=== PATIENT | female | born 1985 | race African-American/Black ===

== ENCOUNTER 2017-06-01 23:40 | Inpatient (IN) | payer MEDICAID ==
[~2017-06-01] VITALS: Ht 165.1 cm; Wt 93.0 kg
[2017-06-01] MEDS ORDERED: OXYTOCIN 30 UNIT/500 ML PREMIX 500 ML IV PRN (23:45)
[2017-06-01] MEDS ORDERED: IBUPROFEN 600 MG TABLET. PO PRN (23:45)
[2017-06-01] MEDS ORDERED: TERBUTALINE 1 MG/ML VIAL. SQ PRN (23:45)
[2017-06-01] MEDS ORDERED: 0.9 % SODIUM CHLORIDE 10 ML DISP.SYRIN. IV PRN (23:45)
[2017-06-01] MEDS ORDERED: LIDOCAINE 1% PF 30 ML VIAL. INJ PRN (23:45)
[2017-06-02] MEDS ORDERED: PENICILLIN G K 5,000,000 UNIT in IV NORMAL SALINE 100ML 100 ML IV ONE ×2
[2017-06-02 00:26] LABS: BILIRUBIN,URINE NEGATIVE (NEG); GLUCOSE,URINE NEGATIVE (NEG); NITRITE,URINE NEGATIVE (NEG); PROTEIN,URINE >=300 mg/dL (NEG-TRACE); UROBILINOGEN,URINE 0.2 mg/dL (0.2 mg/dL)
[2017-06-02] MEDS: IV RINGERS,LACTATED 1000ML 1,000 ML IV SCH ×2 (00:28→01:12)
[2017-06-02] MEDS ORDERED: fentaNYL PF VIAL 100 MCG/2 ML VIAL IV PRN (00:30)
[2017-06-02] MEDS ORDERED: BUTORPHANOL 2 MG/ML VIAL. IV PRN (00:30)
[2017-06-02 00:32] LABS: BARBITURATES NEG (NEG); BENZODIAZEPINES NEG (NEG); CANNABINOIDS POS (NEG); COCAINE NEG (NEG); METHADONE NEG (NEG); OPIATES NEG (NEG); PHENCYCLIDINE NEG (NEG)
[2017-06-02 00:33] LABS: HEMATOCRIT 31.3 % (36.0-47.0); HEMOGLOBIN 10.7 g/dL (12.0-15.5); RED BLOOD COUNT 3.16 x10^6/uL (3.50-5.40); WHITE BLOOD COUNT 11.9 x10^3/uL (4.0-11.0)
[2017-06-02 00:37] LABS: BACTERIA,URINE FEW /HPF (0-FEW); SQUAMOUS EPITHELIAL CELL,UR MANY /LPF
[2017-06-02 00:45] VITALS: BP 147/88
[2017-06-02 00:48] LABS: ALBUMIN 2.2 g/dL (3.4-5.0); ALBUMIN/GLOBULIN RATIO 0.5 (1.0-1.7); CALCIUM 8.2 mg/dL (8.5-10.1); CREATININE 1.3 mg/dL (0.6-1.0); GFR 57.4; POTASSIUM 4.1 mmol/L (3.5-5.1); TOTAL BILIRUBIN 0.2 mg/dL (0.2-1.0); TOTAL PROTEIN 6.4 g/dL (6.4-8.2)
[2017-06-02] MEDS ORDERED: ROPIVacaine 0.2% IN 0.9%NACL PF 40 MG/20 ML DISP.SYRIN. ONE (01:19)
[2017-06-02] MEDS ORDERED: L&D EPIDURAL CASSETTE 100 ML PUMP.RESVR. EP ONE (01:19)
[2017-06-02] MEDS ORDERED: L&D EPIDURAL CASSETTE 100 ML EP ONE (01:19)
[2017-06-02] MEDS ORDERED: BUPIVACAINE MPF 0.25% 30 ML VIAL. ONE (01:32)
[2017-06-02] MEDS ORDERED: L&D EPIDURAL CASSETTE 100 ML EP PRN (02:00)
[2017-06-02] MEDS ORDERED: BUPIVACAINE MPF 0.25% 10 ML VIAL. EPI PRN (02:00)
[2017-06-02] MEDS ORDERED: ROPIVacaine 0.2% IN 0.9%NACL PF 40 MG/20 ML DISP.SYRIN. EPI PRN (02:00)
[2017-06-02] MEDS ORDERED: ePHEDrine PF IN SALINE 50 MG/5 ML DISP.SYRIN IV PRN (02:00)
[2017-06-02] MEDS ORDERED: IV RINGERS,LACTATED 500ML 500 ML IV PRN (02:00)
[2017-06-02] MEDS ORDERED: PHENYLEPHRINE in 0.9% NACL PF 1 MG/10 ML DISP.SYRIN. IV PRN (02:00)
[2017-06-02] MEDS ORDERED: PROCHLORPERAZINE 10 MG/2 ML VIAL. IV PRN (02:00)
[2017-06-02] MEDS ORDERED: ONDANSETRON PF 4 MG/2 ML VIAL. IV PRN (02:00)
[2017-06-02] MEDS ORDERED: NALOXONE 0.4 MG/ML VIAL. IV PRN (02:00)
[2017-06-02] MEDS ORDERED: fentaNYL PF VIAL 100 MCG/2 ML VIAL EPI PRN (02:00)
[2017-06-02] MEDS ORDERED: ATROPINE 0.5 MG/5 ML DISP.SYRIN. IV PRN (02:00)
[2017-06-02] MEDS ORDERED: diphenhydrAMINE 50 MG/ML VIAL IV PRN (02:00)
[2017-06-02] MEDS ORDERED: IV RINGERS,LACTATED 1000ML 1,000 ML IV SCH (02:00)
--- NOTE | 2017-06-02 02:05 | PDOC1 ---
OB - History Hx of Present Care: Good Care Ultrasounds: Normal mid trimester US Obstetrical Complications: None Medical Complications: None Past Family/Social History * Past Medical, Surgical, Family and Obstetric Histories reviewed from chart. Rubella: Immune RPR/VDRL: Negative GBS Status: Unknown HBsAG: Negative OB - Chief Complaint & HPI Date of Admission: Date of Admission: Jun 01, 2017 at 23:40 Chief Complaint/History : 7 Para: 4 EGA: 40 Reason for admission: active labor Admission Nurse Assessment Rev: Yes Problems: OB - Admission Exam Physical Exam Vitals: VS - Last 72 Hours, by Label Date Time Temp Pulse Resp B/P (MAP) Pulse Ox O2 Delivery O2 Flow Rate FiO2 06/02/17 00:45 98.7 75 20 147/88 (107) Room Air 98.7 06/02/17 00:41 18 HEENT: Normal Heart: Regular Rate Lungs: Clear Abdomen: Gravid, Non tender, Soft Extremities: Edema Reflexes: Normal Cervical Dilatation: 5cm Effacement: 75% Membranes: Intact Heart Rate: Normal Accelerations: Accelerations Present Decelerations: No decelerations Contractions on Admission: < 5 Minutes Apart Intensity: Firm Text A: 40 wks IUP Active Labor GBS unknown P: Admit for labor management. Start Pen G prophylaxis for GBS unknown status. SYEDA VALDERRAMA Jr, MD Jun 02, 2017 02:05
[2017-06-02] MEDS ORDERED: PENICILLIN G K 2,500,000 UNIT in IV NORMAL SALINE 50ML 50 ML IV SCH (04:00)
--- NOTE | 2017-06-02 07:03 | PDOC ---
VAGINAL DELIVERY DATE DATE: 06/02/17 TIME: 07:01 : 7 Para: 5 EGA: 40 VAGINAL DELIVERY: VTX VACCUM ASSISTED: No PLACENTA: Spontaneous 8/9 SEX: Female WEIGHT Weight [ 2660 gm] Nuchal Cord: No Amniotic Fluid: Thin Meconium PAIN: Epidural EPISIOTOMY: No EXTENSION: No EBL 300 ml COMPLICATIONS none CONDITION pt. stable Signs of Intrauterine Infectio: None Shoulder Dystocia: No Problems: SYEDA VALDERRAMA Jr, MD Jun 02, 2017 07:02
[2017-06-02] MEDS ORDERED: MMR per PROTOCOL. MC PRN (07:15)
[2017-06-02] MEDS ORDERED: ACETAMINOPHEN 325 MG TABLET. PO PRN (07:15)
[2017-06-02] MEDS ORDERED: OXYTOCIN 30 UNIT/500 ML PREMIX 500 ML IV PRN (07:15)
[2017-06-02] MEDS ORDERED: MAG HYDROX/ALUMINUM HYD/SIMETH 30 ML ORAL.SUSP PO PRN (07:15)
[2017-06-02] MEDS ORDERED: BENZOCAINE 20% TOPICAL AEROSOL SPRAY 57GM CAN. TP PRN (07:15)
[2017-06-02] MEDS ORDERED: ZOLPIDEM 5 MG TABLET. PO PRN (07:15)
[2017-06-02] MEDS ORDERED: SIMETHICONE 80 MG TAB.CHEW PO PRN (07:15)
[2017-06-02] MEDS ORDERED: 0.9 % SODIUM CHLORIDE 10 ML DISP.SYRIN. IV PRN (07:15)
[2017-06-02] MEDS ORDERED: diphenhydrAMINE HCL 25 MG CAPSULE PO PRN (07:15)
[2017-06-02] MEDS ORDERED: DOCUSATE SODIUM 100 MG CAPSULE. PO PRN (07:15)
[2017-06-02] MEDS ORDERED: oxyCODONE/APAP 5/325 1 TAB TABLET PO PRN (07:15)
[2017-06-02] MEDS ORDERED: PHENYLEPH/MINERAL OIL/PETROLAT RECTAL OINTMENT 28GM TUBE. RC PRN (07:15)
[2017-06-02] MEDS ORDERED: HYDROCORTISONE 1% TOPICAL OINTMENT 30GM TUBE. TP PRN (07:15)
[2017-06-02] MEDS ORDERED: MAGNESIUM HYDROXIDE 2,400 MG/30 ML ORAL.SUSP. PO PRN (07:15)
[2017-06-02] MEDS: FERROUS SULFATE 325 MG TABLET. PO SCH ×2 (08:00→17:58)
[2017-06-02] MEDS: IBUPROFEN 800 MG TABLET. PO PRN ×2 (08:47→20:53)
[2017-06-02 11:53] VITALS: BP 119/62
[2017-06-02 12:21] LABS: HIV ANTIBODY Non Reactive (Non Reactive)
[2017-06-02 14:00] VITALS: BP 128/84
[2017-06-02 19:00] VITALS: BP 135/84
[2017-06-02 23:00] VITALS: BP 121/79
[2017-06-03 06:22] LABS: RPR REFLEX Non Reactive (Non Reactive)
[2017-06-03] MEDS: IBUPROFEN 800 MG TABLET. PO PRN ×2 (06:31→14:37)
[2017-06-03 06:36] VITALS: BP 124/83
[2017-06-03 08:06] LABS: BASO % 0 % (0-3); EOS % 0 % (0-3); HEMATOCRIT 27.7 % (36.0-47.0); HEMOGLOBIN 9.3 g/dL (12.0-15.5); LYMPH # 2.7 x10^3/uL (1.0-4.8); LYMPH % 22 % (24-48); MEAN CORPUSCULAR HEMOGLOBIN 33 pg (25-35); MEAN CORPUSCULAR HGB CONC 34 g/dL (31-37); MEAN CORPUSCULAR VOLUME 99 fL (79-100); MONO % 6 % (0-9); NEUT % 71 % (31-73); PLATELET COUNT 160 x10^3/uL (140-400); RED BLOOD COUNT 2.78 x10^6/uL (3.50-5.40); RED CELL DISTRIBUTION WIDTH 12.9 % (11.5-14.5); WHITE BLOOD COUNT 12.3 x10^3/uL (4.0-11.0)
[2017-06-03] MEDS: FERROUS SULFATE 325 MG TABLET. PO SCH ×2 (09:30→17:17)
[2017-06-03 09:31] VITALS: BP 135/86
[2017-06-03 14:48] VITALS: BP 130/87
--- NOTE | 2017-06-03 15:26 | PDOC ---
OB Progress Note Date of Service 06/03/17 Time of Evaluation 1525 Notes Pt. feelling well. No complaints. Lab Laboratory Tests Test 06/02/17 00:15 06/02/17 01:50 06/03/17 07:35 White Blood Count 11.9 x10^3/uL (4.0-11.0) 12.3 x10^3/uL (4.0-11.0) Red Blood Count 3.16 x10^6/uL (3.50-5.40) 2.78 x10^6/uL (3.50-5.40) Hemoglobin 10.7 g/dL (12.0-15.5) 9.3 g/dL (12.0-15.5) Hematocrit 31.3 % (36.0-47.0) 27.7 % (36.0-47.0) Mean Corpuscular Volume 99 fL (79-100) 99 fL (79-100) Mean Corpuscular Hemoglobin 34 pg (25-35) 33 pg (25-35) Mean Corpuscular Hemoglobin Concent 34 g/dL (31-37) 34 g/dL (31-37) Red Cell Distribution Width 13.0 % (11.5-14.5) 12.9 % (11.5-14.5) Platelet Count 188 x10^3/uL (140-400) 160 x10^3/uL (140-400) Urine Collection Type Unknown Urine Color Yellow Urine Clarity Cloudy Urine pH 6.0 Urine Specific Tarzan 1.020 Urine Protein >=300 mg/dL (NEG-TRACE) Urine Glucose (UA) Negative mg/dL (NEG) Urine Ketones (Stick) Negative mg/dL (NEG) Urine Blood Large (NEG) Urine Nitrite Negative (NEG) Urine Bilirubin Negative (NEG) Urine Urobilinogen Dipstick 0.2 mg/dL (0.2 mg/dL) Urine Leukocyte Esterase Small (NEG) Urine RBC 6-10 /HPF (0-2) Urine WBC 5-10 /HPF (0-4) Urine Squamous Epithelial Cells Many /LPF Urine Amorphous Sediment Present /HPF Urine Bacteria Few /HPF (0-FEW) Urine Hyaline Casts Few /HPF Urine Mucus Mod /LPF Sodium Level 136 mmol/L (136-145) Potassium Level 4.1 mmol/L (3.5-5.1) Chloride Level 103 mmol/L (98-107) Carbon Dioxide Level 21 mmol/L (21-32) Anion Gap 12 (6-14) Blood Urea Nitrogen 11 mg/dL (7-20) Creatinine 1.3 mg/dL (0.6-1.0) Estimated GFR (Cockcroft-Gault) 57.4 BUN/Creatinine Ratio 8 (6-20) Glucose Level 87 mg/dL (70-99) Uric Acid 6.0 mg/dL (2.6-6.0) Calcium Level 8.2 mg/dL (8.5-10.1) Total Bilirubin 0.2 mg/dL (0.2-1.0) Aspartate Amino Transf (AST/SGOT) 27 U/L (15-37) Alanine Aminotransferase (ALT/SGPT) 17 U/L (14-59) Alkaline Phosphatase 145 U/L (46-116) Total Protein 6.4 g/dL (6.4-8.2) Albumin 2.2 g/dL (3.4-5.0) Albumin/Globulin Ratio 0.5 (1.0-1.7) Urine Opiates Screen Neg (NEG) Urine Methadone Screen Neg (NEG) Urine Barbiturates Neg (NEG) Urine Phencyclidine Screen Neg (NEG) Urine Amphetamine/Methamphetamine Neg (NEG) Urine Benzodiazepines Screen Neg (NEG) Urine Cocaine Screen Neg (NEG) Urine Cannabinoids Screen Pos (NEG) Urine Ethyl Alcohol Neg (NEG) RPR Titer Additional Testing Non reactive (Non Reactive) Hepatitis B Surface Antigen Negative (Negative) HIV (1&2) Antibody Non reactive (Non Reactive) Rubella IgG Antibody 1.87 index (Immune >0.99) Neutrophils (%) (Auto) 71 % (31-73) Lymphocytes (%) (Auto) 22 % (24-48) Monocytes (%) (Auto) 6 % (0-9) Eosinophils (%) (Auto) 0 % (0-3) Basophils (%) (Auto) 0 % (0-3) Neutrophils # (Auto) 8.8 x10^3uL (1.8-7.7) Lymphocytes # (Auto) 2.7 x10^3/uL (1.0-4.8) Monocytes # (Auto) 0.7 x10^3/uL (0.0-1.1) Eosinophils # (Auto) 0.0 x10^3/uL (0.0-0.7) Basophils # (Auto) 0.0 x10^3/uL (0.0-0.2) Laboratory Tests Test 06/03/17 07:35 White Blood Count 12.3 x10^3/uL (4.0-11.0) Red Blood Count 2.78 x10^6/uL (3.50-5.40) Hemoglobin 9.3 g/dL (12.0-15.5) Hematocrit 27.7 % (36.0-47.0) Mean Corpuscular Volume 99 fL (79-100) Mean Corpuscular Hemoglobin 33 pg (25-35) Mean Corpuscular Hemoglobin Concent 34 g/dL (31-37) Red Cell Distribution Width 12.9 % (11.5-14.5) Platelet Count 160 x10^3/uL (140-400) Neutrophils (%) (Auto) 71 % (31-73) Lymphocytes (%) (Auto) 22 % (24-48) Monocytes (%) (Auto) 6 % (0-9) Eosinophils (%) (Auto) 0 % (0-3) Basophils (%) (Auto) 0 % (0-3) Neutrophils # (Auto) 8.8 x10^3uL (1.8-7.7) Lymphocytes # (Auto) 2.7 x10^3/uL (1.0-4.8) Monocytes # (Auto) 0.7 x10^3/uL (0.0-1.1) Eosinophils # (Auto) 0.0 x10^3/uL (0.0-0.7) Basophils # (Auto) 0.0 x10^3/uL (0.0-0.2) Medications Current Medications Sodium Chloride (Normal Saline Flush) 3 ml QSHIFT PRN IV AFTER MEDS AND BLOOD DRAWS; Start 06/01/17 at 23:45; Stop 06/02/17 at 08:51; Status DC Ringer's Solution 1,000 ml @ 125 mls/hr Q8H IV Last administered on 06/02/17t 01:12; Start 06/01/17 at 23:45; Stop 06/02/17 at 08:54; Status DC Terbutaline Sulfate (Brethine) 0.25 mg 1X PRN PRN SQ SEE COMMENTS; Start at 23:45; Stop 06/02/17 at 18:00; Status DC Lidocaine HCl 30 ml 1X PRN PRN INJ SEE COMMENTS; Start 06/01/17 at 23:45; Stop 06/02/17 at 18:00; Status DC Oxytocin/Sodium Chloride 500 ml @ 0 mls/hr CONT PRN PRN IV Post delivery bleeding Last administered on 06/02/17 01:12; Start 06/01/17 at 23:45; Stop 08/09 at 18:00; Status DC Ibuprofen (Motrin) 600 mg PRN Q6HRS PRN PO PAIN; Start 06/01/17 at 23:45 Penicillin G Potassium [id number] unit/Sodium Chloride 100 ml @ 100 mls/hr 1X ONCE IV Last administered on 06/02/17 00:27; Start 06/02/17 at 00:00; Stop 08/09 at 18:00; Status DC Penicillin G Potassium [id number] unit/Sodium Chloride 50 ml @ 100 mls/hr Q4H IV Last administered on 06/02/17 05:11; Start 06/02/17 at 04:00; Stop 06/02/17 at 08:51; Status DC Fentanyl Citrate (Fentanyl 2ml Vial) 100 mcg PRN Q30MIN PRN IV PAIN Last administered on 06/02/17 00:41; Start 06/02/17 at 00:30; Stop 06/02/17 at 08:51 ; Status DC Butorphanol Tartrate (Stadol) 2 mg PRN Q4HRS PRN IV PAIN; Start 06/02/17 at 00: 30; Stop 06/02/17 at 08:51; Status DC Ropivacaine/ Fentanyl/NS 100 ml @ As Directed STK-MED ONCE EP ; Start 06/02/17 at 01:19; Stop 06/02/17 at 18:00; Status DC Ropivacaine 40 mg STK-MED ONCE .ROUTE ; Start 06/02/17 at 01:19; Stop 06/02/17 at 18:00; Status DC Bupivacaine HCl (Sensorcaine Mpf 0.25%) 30 ml STK-MED ONCE .ROUTE ; Start at 01:32; Stop 06/02/17 at 18:00; Status DC Ringer's Solution 1,000 ml @ 1,000 mls/hr Q1H IV Last administered on t 02:00; Start 06/02/17 at 02:00; Stop 06/02/17 at 02:59; Status DC Ringer's Solution 500 ml @ 500 mls/hr 1X PRN PRN IV HYPOTENSION; Start at 02:00; Stop 06/02/17 at 18:00; Status DC Ephedrine Sulfate 10 mg PRN Q2MIN PRN IV IF SBP<90; Start 06/02/17 at 02:00; Stop 06/02/17 at 08:51; Status DC Phenylephrine HCl 0.05 mg PRN Q2MIN PRN IV SBP less than 90; Start 06/02/17 at 02:00; Stop 06/02/17 at 18:00; Status DC Atropine Sulfate 0.4 mg PRN Q2MIN PRN IV FOR SYMPTOMATIC BRADYCARDIA; Start 08/09 at 02:00; Stop 06/02/17 at 08:52; Status DC Naloxone HCl (Narcan) 0.04 mg PRN Q1MIN PRN IV SEE COMMENTS; Start 06/02/17 at 02:00; Stop 06/02/17 at 18:00; Status DC Fentanyl Citrate (Fentanyl 2ml Vial) 100 mcg PRN 1X PRN EPI FOR ANESTHESIA; Start 06/02/17 at 02:00; Stop 06/02/17 at 08:52; Status DC Bupivacaine HCl (Sensorcaine-Mpf 0.25%) 10 ml PRN 1X PRN EPI FOR ANESTHESIA; Start 06/02/17 at 02:00; Stop 06/02/17 at 08:52; Status DC Ropivacaine/ Fentanyl/NS 100 ml @ 12 mls/hr CONT PRN EP PAIN; Start 06/02/17 at 02:00; Stop 06/02/17 at 18:00; Status DC Ondansetron HCl (Zofran) 4 mg PRN Q6HRS PRN IV NAUSEA/VOMITING; Start 06/02/17 at 02:00 Prochlorperazine Edisylate (Compazine) 5 mg PRN Q6HRS PRN IV NAUSEA/VOMITING Last administered on 06/02/17t 11:47; Start 06/02/17 at 02:00; Stop 06/02/17 at 18:00; Status DC Diphenhydramine HCl (Benadryl) 12.5 mg PRN Q2HR PRN IV ITCHING; Start 06/02/17 at 02:00; Stop 06/02/17 at 08:52; Status DC Ropivacaine 40 mg PRN 1X PRN EPI SEE COMMENTS; Start 06/02/17 at 02:00; Stop at 18:00; Status DC Sodium Chloride (Normal Saline Flush) 10 ml QSHIFT PRN IV AFTER MEDS AND BLOOD DRAWS; Start 06/02/17 at 07:15; Stop 06/02/17 at 18:00; Status DC Oxytocin/Sodium Chloride 500 ml @ 62.5 mls/hr CONT PRN IV SEE I/O RECORD; Start 06/02/17 at 07:15; Stop 06/02/17 at 08:52; Status DC Acetaminophen (Tylenol) 650 mg PRN Q6HRS PRN PO MILD PAIN / TEMP; Start at 07:15 Ibuprofen (Motrin) 800 mg PRN Q8HRS PRN PO INFLAMMATION/PAIN PREVENTION Last administered on 06/03/17 14:37; Start 06/02/17 at 07:15 Docusate Sodium (Colace) 100 mg PRN BID PRN PO CONSTIPATION Last administered on 06/03/17 09:29; Start 06/02/17 at 07:15 Magnesium Hydroxide (Milk Of Magnesia) 2,400 mg PRN DAILY PRN PO CONSTIPATION; Start 06/02/17 at 07:15 Al Hydroxide/Mg Hydroxide (Mylanta Plus Xs) 30 ml PRN Q4HRS PRN PO HEARTBURN / GAS; Start 06/02/17 at 07:15 Simethicone (Gas-X) 80 mg PRN AFTMEALHC PRN PO GAS / BLOATING; Start 06/02/17 at 07:15 Diphenhydramine HCl (Benadryl) 25 mg PRN Q6HRS PRN PO ITCHING; Start 06/02/17 at 07:15 Benzocaine (Americaine) 1 spray PRN QID PRN TP TOPICAL PAIN; Start 06/02/17 at 07:15 Phenyleph/Shark Oil/Min Oil/Petrol (Preparation H) 1 cassi PRN QID PRN RC RECTAL PAIN; Start 06/02/17 at 07:15 Hydrocortisone (Cortaid) 1 cassi PRN QID PRN TP PERINEAL PAIN; Start 06/02/17 at 07:15 Ferrous Sulfate (Feosol) 325 mg BIDWMEALS PO Last administered on 06/03/17t 09: 30; Start 06/03/17 at 08:00 Zolpidem Tartrate (Ambien) 5 mg PRN QHS PRN PO INSOMNIA, MAY REPEAT X1; Start 06/02/17 at 07:15 Info (Do NOT chart on this placeholder) 1 ea 1X PRN PRN MC SEE COMMENTS; Start 06/02/17 at 07:15 Info (Do NOT chart on this placeholder) 1 ea 1X PRN PRN MC SEE COMMENTS; Start 06/02/17 at 07:15; Stop 06/02/17 at 18:00; Status DC Oxycodone/ Acetaminophen (Percocet 5/325) 2 tab PRN Q4HRS PRN PO MODERATE PAIN , SEVERE PAIN; Start 06/02/17 at 07:15 Ropivacaine/ Fentanyl/NS ([id number] 3 Mcg-0.1%) 100 ml STK-MED ONCE EP ; Start 06/02/17 at 01:19; Stop 06/02/17 at 18:00; Status DC Exam Abd: soft,non tender, fundus firm Assessment PPD# s/p Plan of Care: Continue current Tx, Mgmt SYEDA VALDERRAMA Jr, MD Jun 03, 2017 15:26
[2017-06-03 17:10] VITALS: BP 141/92
[2017-06-03 21:10] VITALS: BP 148/88
[2017-06-04 04:25] VITALS: BP 143/83
[2017-06-04 11:45] VITALS: BP 139/84
== END 2017-06-04 12:03 | disposition home or self-care (01) | DRG 775 ==
LOC: 3 SO LND 23:40 → OBSVTOIN 23:40 → 3 SO LND 06-02 10:08
PROVIDERS: ADMIT Obstetrics & Gynecology; ATTEND Obstetrics & Gynecology
PROC: 10E0XZZ Delivery of Products of Conception, External Approach (ICD-10-PCS; principal; 2017-06-02)
DX: O77.0 Labor and delivery complicated by meconium in amniotic fluid (principal); Z37.0 Single live birth; Z3A.40 40 weeks gestation of pregnancy
CPT/HCPCS: 36415; 80053; 80307; 81001; 84550; 85027; 86593; 86701; 86702; 86703; 86762; 86850; 86900; 86901; 87086; 87340; 87341; 87535; G0378; J0780; J2540; J2590; J3010; J7120; G0479